=== PATIENT | female | born 1950 | race African-American/Black ===

== ENCOUNTER 2022-07-28 18:11 | Inpatient (IN) | payer BC, MEDICARE ==
[~2022-07-28] VITALS: Ht 165.1 cm; Wt 60.3 kg
[~2022-07-28 18:11] MED LIST: NORCO
[2022-07-28] MEDS ORDERED: xanax (18:18)
[2022-07-28] MEDS ORDERED: lipitor (18:18)
[2022-07-28] MEDS ORDERED: IOHEXOL-350 100 ML BOTTLE ONE (18:54)
[2022-07-28 19:38] LABS: BASOPHILS % 0.9 % (0.0-2.0); EOSINOPHILS % 12.4 % (0.0-5.0); HEMATOCRIT. 35.1 % (36.0-48.0); HEMOGLOBIN. 11.9 g/dL (12.0-16.0); LYMPHOCYTES % 48.2 % (20.0-50.0); MEAN CORPUSCULAR HEMOGLOBIN 30.7 pg (28.0-32.0); MEAN CORPUSCULAR VOLUME 90.4 fL (81.0-99.0); MEAN PLATELET VOLUME 8.6 fl (7.4-10.4); MONOCYTES % 7.8 % (2.0-8.0); NEUTROPHILS % 30.7 % (40.0-76.0); PLATELET 233 x1000/uL (130-400); RED BLOOD CELL COUNT 3.89 mill/uL (4.2-5.4); RED CELL DISTRIBUTION WIDTH 14.4 % (11.6-14.6)
[2022-07-28 19:44] LABS: CLARITY URINE CLEAR (CLEAR); COLOR URINE YELLOW (YELLOW); KETONES URINE NEGATIVE (NEGATIVE); LEUKOCYTE ESTERASE URINE NEGATIVE (NEGATIVE); NITRITE URINE NEGATIVE (NEGATIVE); OCCULT BLOOD URINE NEGATIVE (NEGATIVE); PROTEIN URINE NEGATIVE (NEGATIVE); SPECIFIC GRAVITY URINE 1.021 (1.005-1.030)
[2022-07-28 19:50] LABS: CHLORIDE 102 mEq/L (98-107)
[2022-07-28 19:59] LABS: *AMPHETAMINES SCREEN URINE NEGATIVE (NEGATIVE); *BARBITURATES SCREEN URINE NEGATIVE (NEGATIVE); *BENZODIAZEPINES SCREEN URINE NEGATIVE (NEGATIVE); *COCAINE SCREEN URINE NEGATIVE (NEGATIVE); CANNABINOID URINE SCREEN NEGATIVE (NEGATIVE); METHADONE URINE SCREEN NEGATIVE (NEGATIVE); OPIATES URINE SCREEN PRESUMTIVE POSITIVE (NEGATIVE); PHENCYCLIDINE URINE SCREEN NEGATIVE (NEGATIVE)
[2022-07-28 20:00] LABS: ETHANOL BLOOD < 10 mg/dL
[2022-07-28] MEDS ORDERED: ASPIRIN 325MG TABLET PO ONE (20:15)
[2022-07-29] VITALS: BP 140/69
[2022-07-29] MEDS ORDERED: DOCUSATE SODIUM 100MG CAPSULE PO PRN (09:45)
[2022-07-29] MEDS ORDERED: GUAIFENESIN 200MG/10ML SUGAR FREE UDC PO PRN (09:45)
[2022-07-29] MEDS ORDERED: ACETAMINOPHEN 325MG TABLET PO PRN (09:45)
[2022-07-29] MEDS ORDERED: IPRATROPIUM/ALBUTEROL 0.5-3(2.5)MG/3ML NEB HHN PRN (09:45)
[2022-07-29] MEDS ORDERED: CLONIDINE 0.1MG TABLET PO PRN (09:45)
[2022-07-29] MEDS ORDERED: ZOLPIDEM TARTRATE 5MG TABLET PO PRN (09:45)
[2022-07-29] MEDS ORDERED: ACETAMINOPHEN 650MG/20.3ML UDC GT PRN (09:45)
[2022-07-29] MEDS ORDERED: ONDANSETRON HCL 4MG/2ML INJ IV PRN (09:45)
[2022-07-29] MEDS: ASPIRIN 81MG TABLET PO SCH (18:40)
[2022-07-29] MEDS ORDERED: ENOXAPARIN 40MG/0.4ML SYR SUBCUT SCH (21:00)
[2022-07-29 21:17] VITALS: BP 142/82
[2022-07-30] VITALS: BP 140/69
[2022-07-30] MEDS ORDERED: OMEP40CA20 MT (00:55)
[2022-07-30] MEDS ORDERED: HYDR-4009 MT (00:55)
[2022-07-30] MEDS ORDERED: DULO60CA64 MT (00:55)
[2022-07-30] MEDS ORDERED: HYDROCODONE/ACETAMINOPHEN 10/325MG TABLET PO PRN (01:15)
[2022-07-30] MEDS ORDERED: NALOXONE HCL 0.4MG/ML VIAL IV PRN (01:30)
[2022-07-30 04:00] VITALS: BP 131/72
[2022-07-30] MEDS ORDERED: OMEPRAZOLE 20MG CAPSULE EXTENDED RELEASE PO SCH (06:40)
[2022-07-30 07:30] LABS: BASOPHILS % 0.8 % (0.0-2.0); EOSINOPHILS % 9.8 % (0.0-5.0); HEMOGLOBIN. 12.9 g/dL (12.0-16.0); LYMPHOCYTES % 42.6 % (20.0-50.0); MEAN CORPUSCULAR HEMOGLOBIN 30.7 pg (28.0-32.0); MEAN CORPUSCULAR VOLUME 90.1 fL (81.0-99.0); MEAN PLATELET VOLUME 8.3 fl (7.4-10.4); MONOCYTES % 8.6 % (2.0-8.0); NEUTROPHILS % 38.2 % (40.0-76.0); PLATELET 236 x1000/uL (130-400); RED BLOOD CELL COUNT 4.22 mill/uL (4.2-5.4); RED CELL DISTRIBUTION WIDTH 14.4 % (11.6-14.6)
[2022-07-30 08:00] VITALS: BP 157/82
[2022-07-30 08:03] LABS: CHLORIDE 107 mEq/L (98-107)
[2022-07-30 08:57] LABS: HDL CHOLESTEROL 93 mg/dL (40-59); LDL CHOLESTEROL 66 mg/dL (5-100); PHOSPHORUS 4.3 mg/dL (2.5-4.9)
[2022-07-30] MEDS ORDERED: DULOXETINE HCL 60MG DR CAPSULE PO SCH (09:00)
[2022-07-30] MEDS: ASPIRIN 81MG TABLET PO SCH (09:32)
[2022-07-30 11:39] LABS: VITAMIN B12 SERUM 405 pg/mL (211-911)
[2022-07-30 12:00] VITALS: BP 156/80
[2022-07-30] MEDS ORDERED: ALBUTEROL (0.083%) 2.5MG/3ML NEB HHN PRN (14:00)
[2022-07-30] MEDS ORDERED: IPRATROPIUM BROMIDE (0.02%) 0.5MG/2.5ML NEB HHN PRN (14:00)
[2022-07-30 16:00] VITALS: BP 149/88
[2022-07-30 18:26] VITALS: BP 149/88
== END 2022-07-30 18:45 | disposition home or self-care (01) | DRG 66 ==
LOC: ER 18:11 → EDBEDREQTM 21:24 → EDBEDREQ 21:24 → ENRESERV 07-29 19:00 → 7EST 07-29 21:23
PROVIDERS: ADMIT Hospitalist; ATTEND Hospitalist
DX: I63.9 Cerebral infarction, unspecified (principal); I10 Essential (primary) hypertension; I65.21 Occlusion and stenosis of right carotid artery; I73.00 Raynaud's syndrome without gangrene; K21.9 Gastro-esophageal reflux disease without esophagitis; M34.9 Systemic sclerosis, unspecified; M35.00 Sjogren syndrome, unspecified; M48.02 Spinal stenosis, cervical region; M79.7 Fibromyalgia; G43.909 Migraine, unspecified, not intractable, without status migrainosus; R29.700 NIHSS score 0; R20.0 Anesthesia of skin; Z20.822 Contact with and (suspected) exposure to COVID-19; Z96.651 Presence of right artificial knee joint; Z79.82 Long term (current) use of aspirin; Y93.G3 Activity, cooking and baking; Z79.899 Other long term (current) drug therapy; Z82.49 Family history of ischemic heart disease and other diseases of the circulatory system
CPT/HCPCS: 36415; 70496; 70498; 70551; 71045; 72141; 80053; 80061; 80305; 80320; 81003; 82607; 82746; 82962; 83036; 83735; 84100; 84443; 84484; 85025; 87426; 93005; 97166; 99291; J1650; Q9967; G0480